=== PATIENT | male | born 1935 | race Caucasian/White ===

== ENCOUNTER 2018-04-05 16:57 | Emergency (ER) | payer OTHER ==
[~2018-04-05] VITALS: Ht 180.3 cm; Wt 98.9 kg
[2018-04-05] MEDS ORDERED: PACERONE 200 M200 M1 PO (18:17)
[2018-04-05] MEDS ORDERED: ASPIR 8181 MG PO (18:18)
[2018-04-05] MEDS ORDERED: CRANBERRY425 MG PO (18:18)
[2018-04-05] MEDS ORDERED: SERTRALINE HCL50 MG PO (18:18)
[2018-04-05 18:19] LABS: ABSOLUTE BASOPHILS 0.1 thou/uL (0.0-0.2); ABSOLUTE EOSINOPHILS 0.1 thou/uL (0.0-0.7); ABSOLUTE LYMPHOCYTES 1.1 thou/uL (0.8-5.3); ABSOLUTE MONOCYTES 0.7 thou/uL (0.0-1.2); ABSOLUTE NEUTROPHILS 5.6 thou/uL (1.6-8.1); BASOPHILS 1.2 %; EOSINOPHILS 1.9 %; HEMATOCRIT 40.6 % (42.0-52.0); HEMOGLOBIN 13.6 gm/dL (14.0-18.0); LYMPHOCYTES 14.9 %; MCH 31.5 pg (26.0-34.0); MCHC 33.6 g/dL (28.0-37.0); MCV 93.9 fL (80.0-100.0); MONOCYTES 8.8 %; MPV 7.6 fl. (7.2-11.1); NUCLEATED RBCS 0 /100WBC; PLATELET COUNT* 281 thou/uL (150-400); POLYS 73.2 %; RBC 4.32 mil/uL (4.50-6.00); RDW-CV 15.1 % (10.5-14.5); WBC 7.6 thou/uL (4.0-11.0)
[2018-04-05] MEDS ORDERED: NASACORT10.8 ML NASAL (18:19)
[2018-04-05] MEDS ORDERED: GLUCOSAMINE HC500 MG PO (18:19)
[2018-04-05] MEDS ORDERED: VITAMIN D3400 UNIT PO (18:19)
[2018-04-05] MEDS ORDERED: TRAVATAN Z2.5 ML OPHTHALMIC (18:20)
[2018-04-05] MEDS ORDERED: PROBIOTIC1 EAC2 PO (18:20)
[2018-04-05 18:33] LABS: ANION GAP 9 mmol/L (7-16); BUN 26 mg/dL (7-18); CALCIUM 8.6 mg/dL (8.5-10.1); CHLORIDE 104 mmol/L (98-107); CO2 26 mmol/L (21-32); CREATININE 1.3 mg/dL (0.6-1.3); GLUCOSE 116 mg/dL (70-99); POTASSIUM 3.9 mmol/L (3.5-5.1); SODIUM 139 mmol/L (136-145)
[2018-04-05 18:34] LABS: PROTIME 10.1 Seconds (9.20-11.50)
[2018-04-05 18:44] LABS: ALBUMIN 3.1 g/dL (3.4-5.0); ALKALINE PHOSPHATASE 83 U/L (46-116); NT-PRO BRAIN NAT PEPTIDE 1100 pg/mL (<300); SGOT 23 U/L (15-37); SGPT 20 U/L (30-65); TOTAL BILIRUBIN 0.5 mg/dL (<0.1-1.0); TOTAL PROTEIN 7.4 g/dL (6.4-8.2); TROPONIN-I LEVEL <0.06 ng/mL (<0.06)
[2018-04-05 19:12] LABS: URINE BILIRUBIN NEGATIVE (Negative); URINE BLOOD 2+ (Negative); URINE CLARITY CLOUDY; URINE COLOR YELLOW; URINE GLUCOSE-RANDOM NEGATIVE (Negative); URINE KETONES NEGATIVE (Negative); URINE NITRITE-REFLEX NEGATIVE (Negative); URINE PROTEIN 1+ (Negative); URINE SPECIFIC GRAVITY 1.025 (1.005-1.030); URINE UROBILINOGEN 0.2 E.U./dl (0.2-1.0)
[2018-04-05 19:13] LABS: URINE LEUKOCYTES-REFLEX 2+ (Negative)
[2018-04-05 19:16] LABS: URINE WBC-REFLEX >25 Many /HPF (0-5); WBC CLUMPS Few (None Seen)
[2018-04-05 19:17] LABS: BACTERIA-REFLEX 1-9 Few /HPF (None Seen); CRYSTALS None Seen /LPF (None Seen); MUCUS None Seen strn/LPF (None Seen); SQUAMOUS NONE SEEN /LPF (0-3); URINE RBC 3-10 Few /HPF (0-2)
[2018-04-05 19:19] LABS: CASTS None Seen /LPF (None Seen)
[2018-04-05] MEDS ORDERED: PREDNISONE50 MG PO (19:20)
[2018-04-05] MEDS ORDERED: VENTOLIN HFA 1818 GM INH (19:20)
[2018-04-05] MEDS ORDERED: LEVAQUIN 750 M750 MG PO (19:20)
[2018-04-05 19:47] VITALS: BP 137/75
--- NOTE | 2018-04-06 14:01 | EKG ---
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 : 1935 Requested By: Vasyl Morris Order Number: [id number] MD: Nate Oliver Measurements Intervals [place] Rate: 63 P: 68 HI: 249 QRS: 135 QRSD: 182 T: -41 QT: 468 QTc: 480 Interpretive Statements Ventricular-paced complexes Underlying atrial fibrillation Nonspecific intraventricular conduction delay Nonspecific ST depression No previous ECG available for comparison Electronically Signed On 04-06-2018 14:01:15 DIRECTORY CARRIER by Nate Oliver [email or web address] <ELECTRONICALLY SIGNED> By: Nate Oliver MD, [facility] 04/06/18 1401 D: 12/1729 29 Nate Oliver MD, FACC /EPI
== END 2018-04-05 19:47 | disposition home or self-care (01) ==
LOC: M.ERS 16:57
PROVIDERS: Nurse Practitioner Family
DX: S01.81XA Laceration without foreign body of other part of head, initial encounter (principal); J18.9 Pneumonia, unspecified organism; N39.0 Urinary tract infection, site not specified; R55 Syncope and collapse; Z88.2 Allergy status to sulfonamides; Z86.73 Personal history of transient ischemic attack (TIA), and cerebral infarction without residual deficits; Z95.5 Presence of coronary angioplasty implant and graft; Z90.89 Acquired absence of other organs; Z85.51 Personal history of malignant neoplasm of bladder; W18.39XA Other fall on same level, initial encounter; Y92.009 Unspecified place in unspecified non-institutional (private) residence as the place of occurrence of the external cause; Y93.89 Activity, other specified; Y99.8 Other external cause status

== ENCOUNTER 2018-08-03 14:59 | Emergency (ER) | payer OTHER ==
[~2018-08-03] VITALS: Ht 177.8 cm; Wt 90.7 kg
[~2018-08-03 14:59] MED LIST: ASPIR 8181 MG PO; CRANBERRY425 MG PO; GLUCOSAMINE HC500 MG PO; LEVAQUIN 750 M750 MG PO; NASACORT10.8 ML NASAL; PACERONE 200 M200 M1 PO; PREDNISONE50 MG PO; PROBIOTIC1 EAC2 PO; SERTRALINE HCL50 MG PO; TRAVATAN Z2.5 ML OPHTHALMIC; VENTOLIN HFA 1818 GM INH; VITAMIN D3400 UNIT PO
[2018-08-03] MEDS ORDERED: REGLAN 10 MG TA10 MG PO (15:13)
[2018-08-03] MEDS ORDERED: ZOLOFT100 MG PO (15:13)
[2018-08-03] MEDS ORDERED: MIDODRINE HCL 55 M1 PO (15:13)
[2018-08-03 15:49] LABS: ABSOLUTE BASOPHILS 0.1 thou/uL (0.0-0.2); ABSOLUTE EOSINOPHILS 0.2 thou/uL (0.0-0.7); ABSOLUTE LYMPHOCYTES 1.3 thou/uL (0.8-5.3); ABSOLUTE MONOCYTES 0.6 thou/uL (0.0-1.2); ABSOLUTE NEUTROPHILS 6.5 thou/uL (1.6-8.1); BASOPHILS 1.1 %; EOSINOPHILS 2.3 %; HEMATOCRIT 39.6 % (42.0-52.0); HEMOGLOBIN 13.1 gm/dL (14.0-18.0); LYMPHOCYTES 15.1 %; MCH 30.1 pg (26.0-34.0); MCHC 33.1 g/dL (28.0-37.0); MCV 90.8 fL (80.0-100.0); MONOCYTES 7.1 %; MPV 7.4 fl. (7.2-11.1); NUCLEATED RBCS 0 /100WBC; PLATELET COUNT* 284 thou/uL (150-400); POLYS 74.4 %; RBC 4.36 mil/uL (4.50-6.00); RDW-CV 15.1 % (10.5-14.5); WBC 8.7 thou/uL (4.0-11.0)
[2018-08-03 16:09] LABS: CALCIUM 8.7 mg/dL (8.5-10.1); CREATININE 1.2 mg/dL (0.6-1.3); POTASSIUM 4.8 mmol/L (3.5-5.1); TOTAL BILIRUBIN 0.5 mg/dL (<0.1-1.0); TOTAL PROTEIN 6.8 g/dL (6.4-8.2)
[2018-08-03 17:38] VITALS: BP 157/86
--- NOTE | 2018-08-04 12:30 | EKG ---
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 <ELECTRONICALLY SIGNED> By: Saroj Crespo MD, FAC 08/04/18 1230 1552 1552 Saroj Crespo MD, FAC /EPI
== END 2018-08-03 17:39 | disposition home or self-care (01) ==
LOC: M.ERS 14:59
PROVIDERS: Nurse Practitioner Family
DX: S01.01XA Laceration without foreign body of scalp, initial encounter (principal); F03.90 Unspecified dementia, unspecified severity, without behavioral disturbance, psychotic disturbance, mood disturbance, and anxiety; Z91.041 Radiographic dye allergy status; Z86.73 Personal history of transient ischemic attack (TIA), and cerebral infarction without residual deficits; Z95.5 Presence of coronary angioplasty implant and graft; Z90.89 Acquired absence of other organs; W18.39XA Other fall on same level, initial encounter; Y92.009 Unspecified place in unspecified non-institutional (private) residence as the place of occurrence of the external cause; Y93.89 Activity, other specified; Y99.8 Other external cause status